=== PATIENT | male | born 1935 | race Caucasian/White ===

== ENCOUNTER 2020-10-24 05:35 | Emergency (ER) | payer MEDICARE ==
--- NOTE | 2020-10-24 05:40 | ED ---
Fall HPI - General Stated Complaint: Fall Time Seen by Provider: 10/24/20 05:38 Source: RN notes reviewed, old records reviewed Mode of arrival: ambulatory Limitations: no limitations - History of Present Illness Initial Comments: This is an 85-year-old male is a poor historian, patient presents today for fall. Patient of fall hitting the anterior occiput. Patient is hospice patient. History obtained from chart and EMS. Family did call and route and state they wanted nothing other than laceration repair. Patient unable to give any history MD Complaint: fall -: days(s) Fall From: standing When Fall Occurred: 1 hour [employer] Fall Witnessed: yes, by family, yes, by bystander Place Fall Occurred: home Loss of Consciousness: none Prolonged Down Time?: no Symptoms Prior to Fall: none Location: head Severity: moderate Severity scale (1-10): 4 Quality: burning Associated Symptoms: headache - Related Data Allergies Allergy/AdvReac Type Severity Reaction Status Date / Time acetaminophen Allergy Unknown Verified 10/24/20 06:10 Review of Systems ROS Statement: Those systems with pertinent positive or pertinent negative responses have been documented in the HPI. ROS Other: All systems not noted in ROS Statement are negative. General Exam General appearance: alert, in no apparent distress Head exam: Present: atraumatic (cm frontal scalp lac), normocephalic, normal inspection Eye exam: Present: normal appearance, PERRL, EOMI. Absent: scleral icterus, conjunctival injection, periorbital swelling ENT exam: Present: normal exam, mucous membranes moist Neck exam: Present: normal inspection. Absent: tenderness, meningismus, lymphadenopathy Respiratory exam: Present: normal lung sounds bilaterally. Absent: respiratory distress, wheezes, rales, rhonchi, stridor Cardiovascular Exam: Present: regular rate, normal rhythm, normal heart sounds. Absent: systolic murmur, diastolic murmur, rubs, gallop, clicks GI/Abdominal exam: Present: soft, normal bowel sounds. Absent: distended, tenderness, guarding, rebound, rigid Extremities exam: Present: normal inspection, full ROM, normal capillary refill. Absent: tenderness, pedal edema, joint swelling, calf tenderness Back exam: Present: normal inspection Neurological exam: Present: alert, oriented X3, CN II-XII intact Psychiatric exam: Present: normal affect, normal mood Skin exam: Present: warm, dry, intact, normal color. Absent: rash Course Vital Signs 10/24/20 05:56 Temperature 98.4 F Pulse Rate 129 H Respiratory 20 Rate Blood Pressure 85/67 O2 Sat by Pulse 96 Oximetry - Reevaluation(s) Reevaluation #1: 10/24/20 06:24 Medical records reviewed Reevaluation #2: 10/24/20 06:25 Laceration is noted. Procedures - Laceration Laceration #1 Consent Obtained: verbal consent Indication: laceration Site: face Size (cm): 3 Description: linear Type of Sutures: other (angela) Size of Sutures: other (angela) Patient Tolerated Procedure: well Medical Decision Making - Medical Decision Making 85 male DF for evaluation of a fall. Patient is hospice, laceration is.. No other evaluation will be made. Patient can be discharged Disposition Clinical Impression: Fall, Scalp laceration Disposition: HOME SELF-CARE Condition: Good Instructions (If sedation given, give patient instructions): Fall Prevention for Older Adults (ED), Staple Care (ED) Is patient prescribed a controlled substance at d/c from ED?: No Referrals: None,Stated [Primary Care Provider] - 1-2 days
[2020-10-24 06:16] VITALS: RESP 20; TEMP 98.4
[2020-10-24 06:32] VITALS: BP 117/86; PULSE 117
== END 2020-10-24 07:20 | disposition home or self-care (01) ==
LOC: EC 05:35
DX: S01.01XA Laceration without foreign body of scalp, initial encounter (principal); W18.30XA Fall on same level, unspecified, initial encounter
CPT/HCPCS: 12002; 99283